=== PATIENT | male | born 1965 | race Caucasian/White ===

== ENCOUNTER 2018-02-02 09:00 | Emergency (ER) | payer OTHER ==
[~2018-02-02] VITALS: Ht 162.6 cm; Wt 73.0 kg
[2018-02-02 09:15] VITALS: BP 141/94; Ht 162.6 cm; Wt 73.0 kg
== END 2018-02-02 09:41 | disposition home or self-care (01) ==
LOC: ED 09:00
DX: S00.31XA Abrasion of nose, initial encounter (principal); I10 Essential (primary) hypertension; X58.XXXA Exposure to other specified factors, initial encounter; Y93.89 Activity, other specified; Y92.89 Other specified places as the place of occurrence of the external cause; Y99.8 Other external cause status

== ENCOUNTER 2019-04-27 13:33 | Emergency (ER) | payer OTHER ==
[~2019-04-27] VITALS: Ht 160 cm; Wt 77.6 kg
[2019-04-27 13:36] VITALS: Ht 160 cm; Wt 77.6 kg
[2019-04-27 14:56] VITALS: BP 149/94
== END 2019-04-27 15:55 | disposition home or self-care (01) ==
LOC: ED 13:33
DX: J36 Peritonsillar abscess (principal); K08.89 Other specified disorders of teeth and supporting structures; I10 Essential (primary) hypertension
CPT/HCPCS: J0295; J1100; J1885; J3490; J7030

== ENCOUNTER 2020-01-26 22:04 | Emergency (ER) | payer BC ==
[~2020-01-26] VITALS: Ht 162.6 cm; Wt 80.4 kg
[2020-01-26 22:21] VITALS: Ht 162.6 cm; Wt 80.4 kg
[2020-01-26 22:57] VITALS: BP 137/94
== END 2020-01-26 22:55 | disposition home or self-care (01) ==
LOC: ED 22:04
DX: I10 Essential (primary) hypertension (principal); Z76.0 Encounter for issue of repeat prescription; F17.210 Nicotine dependence, cigarettes, uncomplicated